=== PATIENT | female | born 1970 | race Caucasian/White ===

== ENCOUNTER 2021-02-03 12:17 | Emergency (ER) | payer OTHER ==
[~2021-02-03] VITALS: Ht 161.3 cm; Wt 73.9 kg
[~2021-02-03 12:17] MED LIST: ACET-8386 PO; IBUP-974 PO
[2021-02-03 12:49] VITALS: BP 133/86
--- NOTE | 2021-02-03 12:54 | NUR ---
pt asssed in triage room at this time by md hdez
[2021-02-03] MEDS ORDERED: PRED20TA5 PO (13:01)
[2021-02-03] MEDS ORDERED: NAPR-54 PO (13:01)
[2021-02-03] MEDS ORDERED: FLONAS NS (13:01)
[2021-02-03] MEDS ORDERED: AMOX-1000 PO (13:01)
[2021-02-03 13:25] VITALS: BP 123/70
== END 2021-02-03 13:20 | disposition home or self-care (01) ==
LOC: MED 12:17
DX: J32.1 Chronic frontal sinusitis (principal); Z79.899 Other long term (current) drug therapy; Z90.710 Acquired absence of both cervix and uterus; Z98.890 Other specified postprocedural states
CPT/HCPCS: 99281

== ENCOUNTER 2021-02-19 19:30 | Emergency (ER) | payer OTHER ==
[~2021-02-19] VITALS: Ht 162.6 cm; Wt 75.7 kg
[~2021-02-19 19:30] MED LIST changes: +AMOX-1000 PO; +FLONAS NS; +NAPR-54 PO; +PRED20TA5 PO
[2021-02-19 20:13] VITALS: BP 127/78
[2021-02-19] MEDS ORDERED: MICO45CR20 VG (21:42)
[2021-02-19 22:00] VITALS: BP 127/78
--- NOTE | 2021-02-19 22:00 | NUR ---
Patient discharged with v/s stable. Written and verbal after care instructions given and explained. Patient alert, oriented and verbalized understanding of instructions. Ambulatory with steady gait. All questions addressed prior to discharge. ID band removed. Patient advised to follow up with PMD. Rx of MONISTAT 7 given. Patient educated on indication of medication including possible reaction and side effects. Opportunity to ask questions provided and answered.
== END 2021-02-19 22:00 | disposition home or self-care (01) ==
LOC: MED 19:30
DX: N81.89 Other female genital prolapse (principal); N76.0 Acute vaginitis; B37.9 Candidiasis, unspecified; Z79.899 Other long term (current) drug therapy; Z90.710 Acquired absence of both cervix and uterus
CPT/HCPCS: 81025; 99282